=== PATIENT | female | born 1965 | race Caucasian/White ===

== ENCOUNTER 2019-02-10 15:01 | Outpatient (CLI) | payer OTHER, SELFPAY ==
--- NOTE | 2019-02-10 14:52 | DI.RAD_ITS ---
SYMPTOM/DIAGNOSIS: NODULES LT HAND LEFT HAND: No bony or joint abnormality is demonstrated.
== END 2019-02-10 15:21 ==
PROVIDERS: PCP Nurse Practitioner; Visit Provider Physician Assistant
DX: R22.32 Localized swelling, mass and lump, left upper limb (principal)
CPT/HCPCS: 73130

== ENCOUNTER 2019-03-30 11:53 | Day surgery (SDC) | payer OTHER, SELFPAY ==
--- NOTE | 2019-03-30 10:37 | PDOC.DSDIS_ITS ---
Documented by User: Claudette Pagan 03/30/19 13:31 Discharge Plan Disposition Patient Disposition: HOME Condition: Good Discharge Details Reason For Visit: ganglion cysts of LLF and LIF PIP joints Attending Provider: Vick Mcgowan Primary Care Provider: Tomasa Brown Home Meds and New Rx's Prescriptions: New hydrocodone-acetaminophen 5-325 mg tablet 1 tab PO Q6H PRN (Reason: severe pain) Qty: 4 RF: 0 acetaminophen 500 mg tablet 500 mg PO Q6H PRN (Reason: pain) Qty: 60 RF: 0 ibuprofen 600 mg tablet 600 mg PO TID PRN (Reason: pain) Qty: 60 RF: 0 No Action vitamin E 1,000 unit Capsule 1,000 unit PO RF: 0 Discharge Instructions Additional Instructions: Activity: You may use your fingers for light activity. You should limit any excessive motion or forceful gripping until the sutures have been removed. Dressings: You should keep the initial surgical dressing in place for at least 3 days. You may remove your dressings and get the wound wet after 3 days. You should keep the dressings and the wound clean at all times. You may keep the initial dressing in place until your follow-up but keep the wound covered with light gauze until the sutures are removed. Medications: - You should take Tylenol and Ibuprofen around the clock as prescribed or per job change crew member's recommendations. - You have Hydrocodone prescribed for breakthrough pain control. Take only as needed and limit use as much as possible. This may cause constipation. Follow-up: 7-10 days for wound check and suture removal. Referrals: Vick Mcgowan MD [ [facility] STAFF PHYSICIAN] - Activity:: Activity as Tolerated Remove Dressings/Wound Care:: 72 hours Shower/Bathe:: 72 hours Diet:: As Tolerated Discharge Orders Discharge Orders: Discharge Order (Routine); Ordered 03/30/19 Ordered By: Claudette Pagan DS: Diagnosis Discharge Diagnosis (1) Ganglion cyst of finger of left hand: Status: Chronic Documented by User: Vick Mcgowan MD 03/30/19 13:52 Discharge Plan Disposition Patient Disposition: HOME Condition: Good Discharge Details Reason For Visit: ganglion cysts of LLF and LIF PIP joints Attending Provider: Vick Mcgowan Primary Care Provider: Tomasa Brown Home Meds and New Rx's Prescriptions: New hydrocodone-acetaminophen 5-325 mg tablet 1 tab PO Q6H PRN (Reason: severe pain) Qty: 4 RF: 0 acetaminophen 500 mg tablet 500 mg PO Q6H PRN (Reason: pain) Qty: 60 RF: 0 ibuprofen 600 mg tablet 600 mg PO TID PRN (Reason: pain) Qty: 60 RF: 0 No Action vitamin E 1,000 unit Capsule 1,000 unit PO RF: 0 Discharge Instructions Additional Instructions: Activity: You may use your fingers for light activity. You should limit any excessive motion or forceful gripping until the sutures have been removed. Dressings: You should keep the initial surgical dressing in place for at least 3 days. You may remove your dressings and get the wound wet after 3 days. You should keep the dressings and the wound clean at all times. You may keep the initial dressing in place until your follow-up but keep the wound covered with light gauze until the sutures are removed. Medications: - You should take Tylenol and Ibuprofen around the clock as prescribed or per job change crew member's recommendations. - You have Hydrocodone prescribed for breakthrough pain control. Take only as needed and limit use as much as possible. This may cause constipation. Follow-up: 7-10 days for wound check and suture removal. Referrals: Vick Mcgowan MD [ [facility] STAFF PHYSICIAN] - Activity:: Activity as Tolerated Remove Dressings/Wound Care:: 72 hours Shower/Bathe:: 72 hours Diet:: As Tolerated Discharge Orders Discharge Orders: Discharge Order (Routine); Ordered 03/30/19 Ordered By: Claudette Pagan
[2019-03-30 12:08] VITALS: BP 116/73; PULSE 63; RESP 16; TEMP 36.5; O2SAT 99
[2019-03-30] MEDS: Sodium Bicarbonate 50 MEQ/50 ML VIAL (13:14)
[2019-03-30] MEDS: Lidocaine 1% Multi-Dose 50 ML VIAL (13:14)
[2019-03-30] MEDS: Bupivacaine 0.25% Pres-Free 30 ML VIAL (13:22)
--- NOTE | 2019-04-01 11:20 | ROE_ITS ---
Date of Surgery: March 30, 2019 Preoperative Diagnosis: Left index finger and left little finger ganglion cyst. Postoperative Diagnosis: Left index finger and left little finger ganglion cyst. Surgery: Excision of ganglion cyst from left index finger PIP joint and left little finger PIP joint. Surgeon: Vick Mcgowan M.D. Anesthesia: Local Estimated Blood Loss: 10 cc Complications: None Disposition: The patient was taken to the Same Day surgery area in stable condition. Indications for Procedure: Tea is a 53-year-old who has had cysts of her left index finger and little finger. These have been on the dorsal surface of the PIP joint for some time. She continues to bump them which causes pain. They have not decreased in size and have been present for some time. She did have similar cysts on two other fingers which were removed without significant difficulty and they have not returned. Given the failure to improve and their notable pain, I did offer surgical removal. I reviewed the risks of the procedure to include bleeding, infection, pain, stiffness, damage to nerves and vessels, and recurrence. Despite these risks, she elected to proceed. Procedure Description: Tea was greeted in the preoperative holding area. Her identity was confirmed and the correct sites identified and marked. The consent was reviewed with the patient and signed. She was taken back to the operating room and placed in a supine position. The left hand was placed onto a hand table. The left hand was prepped with ChloraPrep and draped in a standard fashion. No antibiotics were used for this clean hand surgery case. A time-out was performed for safe surgery. The cysts were marked and incisions were planned over the dorsoulnar aspect of the PIP joint. Each digit was injected with 5 cc of buffered 1% lidocaine to perform a digital block. Once the block had set up, we began for a cyst excision starting with the little finger. A 1.5 cm incision was made over the dorsoulnar aspect of the PIP joint. This was taken down through the skin. Immediately underneath the skin we were able to identify the cystic structure. This was grasped and dissected away from the overlying extensor love. The cyst was deflated and it was followed down to the ___ joint. The cyst was resected which left an arthrotomy. This tissue was debrided slightly with a rongeur. The wound was then thoroughly irrigated. The skin was closed with 4-0 nylon. Similarly on the index finger, a slightly curved incision over the dorsoulnar aspect of the index finger was made. This was taken down sharply through the skin. Once through the skin, dissection was carried down onto the extensor mechanism. The cyst was visualized deep to this. A small incision was made between the lateral bands and the central extensor tendon to expose the ganglion cyst. The cyst was excised, taking out a piece of capsule, which showed good visualization into the joint. There was prominence to the base of the middle phalanx of this area. However, the lateral band was right on top of it and I did not want to jeopardize the extensor mechanism. Therefore this was not debrided down. The wound was then irrigated. 4-0 nylon was used to close the skin. Both wounds were dressed with Xeroform, 4x4s, and a conform dressing. There was some notable ooze from the right index finger, but no aggressive bleeding. At the end of the case all counts were correct. Fingers were warm and well perfused. She was taken back to Same Day surgery in stable condition.
== END 2019-03-30 13:45 | disposition home or self-care (01) ==
LOC: SUR 11:54
PROVIDERS: PCP Nurse Practitioner; Visit Provider Student in an Organized Health Care Education/Training Program
PROC: (CPT 26160; principal; 2019-03-30 12:45)
DX: M67.442 Ganglion, left hand (principal)
CPT/HCPCS: 26160

== ENCOUNTER 2019-10-05 10:06 | Outpatient (REF) | payer BC, SELFPAY ==
--- NOTE | 2019-10-05 09:45 | PAPFT_PTH ---
PATIENT: Galilea Zamora LOC: [facility]#:[id number] AGE/SX: 54/F ROOM: RE10/05/[address]: Tomasa Brown : 1965 BED: DIS: 10/05/2019 SPEC #: [id number] RECD: 10/05/19 12:48 STATUS: [place] REZachary #: [id number] BOB: 10/05/19 09:[address]: Tomasa Brown DEPT: [facility] Cytology RECD BY: Rosy Gutierrez Tissues: 1 - CX/ENDOCX FOR PAP SMEARS Procedures: PAP THIN PREP/UVM Screening HPV DNA PROBE Comments: [id number]
== END 2019-10-05 10:26 ==
LOC: NCHCN 10:06
PROVIDERS: PCP Nurse Practitioner; Visit Provider Nurse Practitioner
DX: Z00.00 Encounter for general adult medical examination without abnormal findings (principal); Z12.4 Encounter for screening for malignant neoplasm of cervix; Z11.51 Encounter for screening for human papillomavirus (HPV)
CPT/HCPCS: 88142; 87624

== ENCOUNTER 2019-11-04 00:38 | Outpatient (CLI) | payer BC, SELFPAY ==
--- NOTE | 2019-11-04 | DI.MAMMO_ITS ---
EXAM: MAMMO SCREENING CLINICAL HISTORY: SCREENING, Z12.39 TECHNIQUE: Mammograms were interpreted according to the usual protocol including computer analysis w [employer] CAD system, tomosynthesis and C-view imaging. COMPARISON: 2009 to 2017 FINDINGS: The breasts are composed of heterogeneously dense fibroglandular densities, Breast Density category C . No suspicious masses or suspicious microcalcifications are seen. No skin thickening or abnormal axillary lymph nodes are seen. There has been no significant change from prior exams. IMPRESSION: BIRADS Category 1, negative mammogram. Yearly screening mammography is recommended. BREAST DENSITY: The mammogram demonstrates the patient's breast tissue is dense. Dense breast tissue is very common and is not abnormal but dense breast tissue can make it harder to find cancer on a ma mmogram. Also, dense breast tissue may increase breast cancer risk. This information about the result of the mammogram report was provided to the patient to raise their awareness. Use this report when y ou speak with the patient about their risks for breast cancer, which includes their family history. A t that time, you may recommend additional screening tests (Ultrasound or MRI) as they might be useful based on their risk. A negative radiographic report should not delay biopsy if a dominant or clinically suspicious mass is present. Up to ten percent of cancers are not identified on mammography. A negative report may reinforce clinical impression. Adenosis and dense breasts may obscure an underlying neoplasm. False positive reports average 6 to 10%.
== END 2019-11-04 00:58 ==
PROVIDERS: PCP Nurse Practitioner; Visit Provider Nurse Practitioner
DX: Z12.31 Encounter for screening mammogram for malignant neoplasm of breast (principal)
CPT/HCPCS: 77063; 77067

== ENCOUNTER 2020-11-16 02:03 | Outpatient (CLI) | payer BC, SELFPAY ==
--- NOTE | 2020-11-16 08:20 | DI.MAMMO_ITS ---
EXAM: MG MAMMO SCREENING CLINICAL HISTORY: SCREENING, Z12.39 TECHNIQUE: Bilateral full field digital CC and MLO mammographic images were obtained with 3D tomosyn thesis and utilizing computer aided detection (CAD). COMPARISON: Available for comparison. FINDINGS: Masses/Architectural Distortion: None seen. Microcalcifications: No suspicious pleomorphic-type are seen. Skin Thickening/Nipple Retraction: None. IMPRESSION: 1. No significant interval change with no specific features of malignancy noted. 2. Unless there is more urgent need, screening mammography is recommended, as per [place] [employer] guidelines. BI-RADS Category 1 - Negative Breast Density - Category C - Heterogeneously dense Breast density category C or D implies that the patient has dense breast tissue. Dense breast tissue is very common and is not abnormal but dense breast tissue can make it harder to find cancer on a ma mmogram. Also, dense breast tissue may increase their breast cancer risk. This information about the result of the mammogram report was provided to the patient to raise their awareness. Use this report when you speak with the patient about their risks for breast cancer, which includes their family hist ory. At that time, you may recommend for more screening tests (Ultrasound or MRI) as they might be us eful based on their risk. A negative radiographic report should not delay biopsy if a dominant or clinically suspicious mass is present. Up to ten percent of cancers are not identified on mammography. A negative report may reinforce clinical impression. Adenosis and dense breasts may obscure an underlying neoplasm. False positive reports average 6 to 10%. Patient will receive a letter notifying them of these results.
== END 2020-11-16 02:23 ==
PROVIDERS: PCP Nurse Practitioner; Visit Provider Nurse Practitioner
DX: Z12.31 Encounter for screening mammogram for malignant neoplasm of breast (principal)
CPT/HCPCS: 77063; 77067

== ENCOUNTER 2021-11-13 18:40 | Outpatient (REF) | payer BC, SELFPAY ==
[2021-11-13 17:36] LABS: Anion Gap 7.4 mmol/L (3-11); BUN 12 mg/dL (7-18); CO2 27.6 mmol/L (21.0-32.0); CREATININE 0.7 mg/dL (0.55-1.02); Calcium 8.5 mg/dL (8.5-10.1); Calculated LDL 141 mg/dL (<100); Chloride 105 mmol/L (98-107); Cholesterol 211 mg/dL (<200); Glucose 94 mg/dL (74-106); HDL Cholesterol 62 mg/dL (40-60); Sodium 140 mmol/L (136-145); Triglyceride 41 mg/dL (<150)
== END 2021-11-13 18:41 | disposition home or self-care (01) ==
LOC: NCHCN 18:40
PROVIDERS: PCP Nurse Practitioner; Visit Provider Nurse Practitioner Family
DX: Z00.00 Encounter for general adult medical examination without abnormal findings (principal); Z13.1 Encounter for screening for diabetes mellitus; Z13.220 Encounter for screening for lipoid disorders
CPT/HCPCS: 80048; 80061

== ENCOUNTER 2021-11-16 00:14 | Outpatient (CLI) | payer BC, SELFPAY ==
--- NOTE | 2021-11-16 07:43 | DI.MAMMO_ITS ---
Exam(s) MAMMO SCREENING EXAM: MAMMO SCREENING CLINICAL HISTORY: SCREENING, Z12.39 TECHNIQUE: Bilateral full field digital CC and MLO mammographic images were obtained with 3D tomosyn thesis and utilizing computer aided detection (CAD). COMPARISON: Available for comparison. FINDINGS: Masses/Architectural Distortion: None seen. Microcalcifications: No suspicious pleomorphic-type are seen. Skin Thickening/Nipple Retraction: None. IMPRESSION: 1. No significant interval change with no specific features of malignancy noted. 2. Unless there is more urgent need, screening mammography is recommended, as per [place] [employer] guidelines. BI-RADS Category 1 - Negative Breast Density - Category C - Heterogeneously dense Breast density category C or D implies that the patient has dense breast tissue. Dense breast tissue is very common and is not abnormal but dense breast tissue can make it harder to find cancer on a ma mmogram. Also, dense breast tissue may increase their breast cancer risk. This information about the result of the mammogram report was provided to the patient to raise their awareness. Use this report when you speak with the patient about their risks for breast cancer, which includes their family hist ory. At that time, you may recommend for more screening tests (Ultrasound or MRI) as they might be us eful based on their risk. A negative radiographic report should not delay biopsy if a dominant or clinically suspicious mass is present. Up to ten percent of cancers are not identified on mammography. A negative report may reinforce clinical impression. Adenosis and dense breasts may obscure an underlying neoplasm. False positive reports average 6 to 10%. Patient will receive a letter notifying them of these results.
== END 2021-11-16 00:34 ==
PROVIDERS: PCP Nurse Practitioner; Visit Provider Nurse Practitioner Family
DX: Z12.31 Encounter for screening mammogram for malignant neoplasm of breast (principal); R92.8 Other abnormal and inconclusive findings on diagnostic imaging of breast
CPT/HCPCS: 77063; 77067

== ENCOUNTER 2024-07-21 08:15 | Outpatient (REF) | payer BC, SELFPAY ==
--- NOTE | 2024-07-21 08:15 | PAPFT_PTH ---
PATIENT: Galilea Zamora LOC: [facility]#:[id number] AGE/SX: 59/F ROOM: RE07/21/[address]: Crystal Cross APRN : 1965 BED: DIS: 07/21/2024 SPEC #: [id number] RECD: 07/21/24 17:53 STATUS: [place]WICK REQ #: [id number] BOB: 07/21/24 08:[address]: Crystal Cross DEPT: [facility] Cytology RECD BY: Rosy Gutierrez Tissues: 1 - CX/ENDOCX FOR PAP SMEARS Procedures: PAP THIN PREP/UVM Screening HPV DNA PROBE Comments: [id number] (HPV 16 & 18/45)
== END 2024-07-21 08:16 | disposition home or self-care (01) ==
LOC: LBN 08:15
PROVIDERS: PCP Nurse Practitioner; Visit Provider Nurse Practitioner
DX: Z20.818 Contact with and (suspected) exposure to other bacterial communicable diseases (principal); Z12.39 Encounter for other screening for malignant neoplasm of breast; E78.5 Hyperlipidemia, unspecified; Z23 Encounter for immunization; J45.909 Unspecified asthma, uncomplicated
CPT/HCPCS: 88142; 87624